=== PATIENT | female | born 1970 | race American Indian/Alaskan Native ===

== ENCOUNTER 2018-12-12 19:51 | Emergency (ER) | payer OTHER ==
[2018-12-12] MEDS ORDERED: IPRATROPIUM/ALBUTEROL SULFATE 3 ML AMPUL.NEB IH ONE (20:56)
[2018-12-12 20:57] VITALS: BP 191/94
--- NOTE | 2018-12-12 20:58 | Event Note ---
ED Screening Note Date of service: 12/12/18 Time: 20:55 ED Screening Note: This is a 48 y.o. F. that presents to the ER with cough and SOB for 1 week. PMH of asthma Reports increased use of inhaler and neb treatment without relief. Nonsmoker Patient states initially started out with fever and congestion which resolved. This initial assessment/diagnostic orders/clinical plan/treatment(s) is/are subject to change based on patients health status, clinical progression and re- assessment by fellow clinical providers in the ED. Further treatment and workup at subsequent clinical providers discretion. Patient/guardian urged not to elope from the ED as their condition may be serious if not clinically assessed and managed. Initial orders include: CXR Duoneb
[2018-12-12] MEDS ORDERED: diphenhydrAMINE 50 MG/ML VIAL IV STA (21:10)
[2018-12-12] MEDS ORDERED: methylPREDNISolone Sod Succinate 125 MG/2 ML INJ IV STA (21:10)
[2018-12-12] MEDS ORDERED: ALBUTEROL 2.5 MG/3 ML NEBU IH ONE (21:10)
--- NOTE | 2018-12-12 21:16 | Emergency Department Report ---
ED Asthma HPI - General Chief Complaint: Dyspnea/Respdistress Stated Complaint: ASTHMA Time Seen by Provider: 12/12/18 20:55 Source: patient Mode of arrival: Ambulatory Limitations: Language Barrier - History of Present Illness MD Complaint: "asthma attack", wheezing -: Gradual Severity: moderate Context: none known Associated Symptoms: dry cough Treatments Prior to Arrival: inhaled bronchodilator - Related Data Current Asthma Therapy: inhaled bronchodilator Previous Rx's Medication Instructions Recorded Last Taken Type Montelukast [Singulair] 10 mg PO QPM #7 tablet 12/12/18 Unknown Rx guaiFENesin/CODEINE [Robitussin AC] 5 ml PO Q6H PRN #120 ml 12/12/18 Unknown Rx levoFLOXacin [Levaquin TAB] 500 mg PO QDAY #5 tablet 12/12/18 Unknown Rx predniSONE [Deltasone] 50 mg PO QDAY #5 tab 12/12/18 Unknown Rx Allergies Allergy/AdvReac Type Severity Reaction Status Date / Time No Known Allergies Allergy Verified 12/12/18 19:55 ED Review of Systems ROS: Stated complaint: ASTHMA Other details as noted in HPI Comment: All other systems reviewed and negative ED Past Medical Hx - Past Medical History Hx Asthma: Yes - Surgical History Past Surgical History?: Yes Additional Surgical History: foot - Social History Smoking Status: Never Smoker Substance Use Type: None - Medications Home Medications: Home Medications Medication Instructions Recorded Confirmed Last Taken Type Montelukast [Singulair] 10 mg PO QPM #7 tablet 12/12/18 Unknown Rx guaiFENesin/CODEINE [Robitussin AC] 5 ml PO Q6H PRN #120 ml 12/12/18 Unknown Rx levoFLOXacin [Levaquin TAB] 500 mg PO QDAY #5 tablet 12/12/18 Unknown Rx predniSONE [Deltasone] 50 mg PO QDAY #5 tab 12/12/18 Unknown Rx ED Physical Exam - General Limitations: Language Barrier General appearance: alert, in no apparent distress - Head Head exam: Present: atraumatic, normocephalic - Eye Eye exam: Present: normal appearance - ENT ENT exam: Present: mucous membranes moist - Neck Neck exam: Present: normal inspection - Respiratory Respiratory exam: Present: respiratory distress (laboratory distress, speaking in near full sentences), wheezes - Cardiovascular Cardiovascular Exam: Present: regular rate, normal rhythm. Absent: systolic murmur, diastolic murmur, rubs, gallop - GI/Abdominal GI/Abdominal exam: Present: soft, normal bowel sounds - Extremities Exam Extremities exam: Present: normal inspection - Back Exam Back exam: Present: normal inspection - Neurological Exam Neurological exam: Present: alert, oriented X3 - Psychiatric Psychiatric exam: Present: normal affect, normal mood - Skin Skin exam: Present: warm, dry, intact, normal color. Absent: rash ED Course Vital Signs 12/12/18 12/12/18 12/12/18 20:55 21:15 22:07 Temperature 98.7 F Pulse Rate 93 H Pulse Rate [ 88 Bilateral] Respiratory 18 20 Rate Respiratory 18 Rate [Bilateral ] Blood Pressure 191/94 O2 Sat by Pulse 97 97 Oximetry - Reevaluation(s) Reevaluation #1: 12/12/18 23:35 Ms. Ponce feels much better. Report show breathing has significantly improved. She reports significant reduction in her work of breathing. She is ambulatory no distress, speaking in full sentences without issues, seizures or Critical care attestation.: If time is entered above; I have spent that time in minutes in the direct care of this critically ill patient, excluding procedure time. ED Disposition Clinical Impression: Cough, Wheezing, Infiltrate noted on imaging study Disposition: DC-01 TO HOME OR SELFCARE Is pt being admited?: No Does the pt Need Aspirin: No Condition: Stable Instructions: Pneumonia (ED), Community-acquired Pneumonia (ED), Asthma (ED) Prescriptions: predniSONE [Deltasone] 50 mg PO QDAY #5 tab levoFLOXacin [Levaquin TAB] 500 mg PO QDAY #5 tablet guaiFENesin/CODEINE [Robitussin AC] 5 ml PO Q6H PRN #120 ml PRN Reason: Cough Montelukast [Singulair] 10 mg PO QPM #7 tablet Referrals: PRIMARY CAREMD [Primary Care Provider] - 3-5 Days [facility] [Provider Group] - 3-5 Days
--- NOTE | 2018-12-12 21:30 | XRay Report ---
CHEST 2 VIEWS INDICATION / CLINICAL INFORMATION: SOB and cough. COMPARISON: None available. FINDINGS: SUPPORT DEVICES: None. HEART / MEDIASTINUM: No significant abnormality. LUNGS / PLEURA: There is mild hazy parenchymal opacity in the right lower lobe without pleural effusi on. The left lung is clear. No pneumothorax. ADDITIONAL FINDINGS: No significant additional findings. IMPRESSION: 1. Hazy right lower lobe parenchymal opacity that could reflect atelectasis or developing infectious or inflammatory process. Signer Name: Sanjay Bass MD Signed: 12/12/2018 9:26 PM Workstation Name: [id number]
[2018-12-12] MEDS ORDERED: levoFLOXacin 750 MG TAB PO STA (23:08)
== END 2018-12-13 00:20 | disposition home or self-care (01) ==
LOC: ED 19:51
DX: R05 Cough (principal); R06.2 Wheezing; R91.8 Other nonspecific abnormal finding of lung field; J45.909 Unspecified asthma, uncomplicated
CPT/HCPCS: 71046; 94640; 96374; 96375; 99284; J1200; J2930; 94644